=== PATIENT | male | born 2000 | race Caucasian/White ===

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

== ENCOUNTER 2024-07-28 15:04 | Emergency (ER) | payer OTHER, SELFPAY ==
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
[2024-07-28 15:25] VITALS: BP 149/99; PULSE 115; RESP 18; TEMP 37.1; O2SAT 98
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
[2024-07-28] MEDS: IBUPROFEN 400 MG TABLET 800 MG PO (16:57)
== END 2024-07-28 17:22 | disposition home or self-care (01) ==
PROVIDERS: Emergency Provider Nurse Practitioner
DX: S16.1XXA Strain of muscle, fascia and tendon at neck level, initial encounter (principal); S29.012A Strain of muscle and tendon of back wall of thorax, initial encounter; V49.40XA Driver injured in collision with unspecified motor vehicles in traffic accident, initial encounter
CPT/HCPCS: 72040; 72072; 99213; A9270; G0463